=== PATIENT | female | born 1955 | race Caucasian/White ===

== ENCOUNTER 2016-07-10 14:40 | Emergency (ER) ==
--- NOTE | 2016-07-10 15:35 | EKG Report ---
Test Performed on : 07/10/2016 2:52:05 PM Test Reason : dizziness Blood Pressure : / mmHG Vent. Rate : 060 BPM Atrial Rate : 060 BPM P-R Int : 192 ms QRS Dur : 096 ms QT Int : 472 ms P-R-T Axes : 038 022 035 degrees QTc Int : 472 ms Normal sinus rhythm. Normal ECG No previous ECGs available Unconfirmed Result
[2016-07-10] MEDS ORDERED: NS 1,000 ML IV ONE (17:08)
[2016-07-10] MEDS ORDERED: ANTIVERT PO ONE (17:08)
[2016-07-10] MEDS ORDERED: ZOFRAN IV ONE (17:09)
--- NOTE | 2016-07-10 17:14 | PROVIDER DOCUMENTATION ---
HPI-General Adult - History of Present Illness -Gen Adult Nature of Presenting Problems: A 61 y/o F with PMH of HTN DM HL presented with new episode of dizziness associated with nausea describes as room spinning in the past few years ago had similar episode and was presyncopal that time. This episode started 3 hrs [employer] associted with nausea while she was at rest worse with head movement. Denies CP/ SOB/simms/abd pain <Russ Davison - Last Filed: 07/10/16 19:26> <Mili Teresa - Last Filed: 07/10/16 20:42> - General Chief Complaint: Dizziness Stated Complaint: DIZZINESS,NAUSEA,CANT STAND Time Seen by Provider: 07/10/16 16:53 Allergies/Adverse Reactions: Patient Allergies Allergy/AdvReac Type Severity Reaction Status Date / Time No Known Allergies Allergy Verified 07/10/16 17:19 Home Medications: Bisoprolol/Hctz [Ziac 5/6.25 mg] 1 each PO DAILY 04/20/13 Phentermine HCl 37.5 mg PO DAILY 04/20/13 Review of Systems - Adult - REVIEW OF SYSTEMS - ADULT Constitutional: reports: no symptoms reported Eyes: reports: no symptoms reported Ears, Nose, Mouth & Throat: reports: no symptoms reported Cardiovascular: reports: no symptoms reported Respiratory: reports: no symptoms reported Gastrointestinal: reports: no symptoms reported Genitourinary: reports: no symptoms reported Musculoskeletal: reports: no symptoms reported Integumentary: reports: no symptoms reported Neurological: reports: see HPI, dizziness/vertigo Psychiatric: reports: no symptoms reported Endocrine: reports: no symptoms reported Hematologic/Lymphatic: reports: no symptoms reported Allergic/Immunologic: reports: no symptoms reported All Other Systems: Reviewed and Negative <Russ Davison - Last Filed: 07/10/16 19:26> Past History - Adult - PAST MEDICAL HISTORY-ADULT Review of Records: reports: Old Records Reviewed, Nursing Assessment Review, Medications Reviewed, Social history reviewed & non-contributory. Major Childhood Illnesses: reports: denies history Cardiovascular: reports: denies history Respiratory: reports: denies history Gastrointestinal: reports: denies history Obstetrical/Gynecological: reports: denies history Genitourinary: reports: denies history Musculoskeletal: reports: denies history Neurological: reports: denies history Endocrine/Immune: reports: denies history Other Conditions: reports: denies history - FAMILY HISTORY Family History: reviewed, not pertinent <Russ Davison - Last Filed: 07/10/16 19:26> Physical Exam-General - PHYSICAL EXAM-ADULT Initial Vital Signs Reviewed: Yes - CONSTITUTIONAL General Appearance: appears well, alert, mild distress - EYES Eyes: PERRL/EOMI, pink conjunctivae - HEAD, EARS, NOSE, MOUTH & THROAT HENMT: normocephalic/atraumatic, moist mucous membranes, normal ENT inspection - NECK Neck: non-tender, full range of motion, normal inspection - RESPIRATORY Respiratory: chest non-tender, lungs clear, normal breath sounds - CARDIOVASCULAR Cardiovascular: normal peripheral pulses, regular rate, rhythm, no edema - GASTROINTESTINAL (ABDOMEN) Abdominal Exam: normal bowel sounds, non tender, soft - LYMPHATIC Lymphatic: no adenopathy - MUSCULOSKELETAL Back Exam: normal inspection, no CVA tenderness, no vertebral tenderness Extremity: normal range of motion, non-tender, normal gait - SKIN Integumentary: normal color, normal turgor, warm/dry - NEUROLOGIC Neurologic: grossly normal, no motor/sensory deficits, other (bang hallpike positive on the left with horizontal nystagmus) - PSYCHIATRIC Psych/Mental Status: normal mood/affect, normal thought content, normal thought process, oriented x 3 <Russ Davison - Last Filed: 07/10/16 19:26> Progress - PLAN OF CARE/RESULTS Progress/Plan/Lab Results: Laboratory Tests 07/10/16 07/10/16 07/10/16 17:15 17:15 17:15 WBC 13.55 H RBC 4.48 Hgb 12.9 Hct 38.2 MCV 85.3 MCH 28.8 MCHC 33.8 RDW Std Deviation 14.4 Plt Count 332 MPV 10.8 H Immature Gran % (Auto) 0.4 Neut % (Auto) 73.1 Lymph % (Auto) 13.7 L [place] % (Auto) 10.3 H Eos % (Auto) 2.1 Baso % (Auto) 0.4 Immature Gran # (Auto) 0.06 H Neut # (Auto) 9.91 H Lymph # (Auto) 1.85 [place] # (Auto) 1.39 H Eos # (Auto) 0.29 Baso # (Auto) 0.05 PT INR PTT (Actin FS) D-Dimer 0.64 H Sodium 133 L Potassium 3.4 L Chloride 94 L Carbon Dioxide 23 L Anion Gap 16 BUN 18 Creatinine 1.0 H Estimated GFR/1.73 m2 56 BUN/Creatinine Ratio 18 Glucose 106 H Calculated Osmolality 269 Calcium 9.4 Magnesium 2.2 Total Bilirubin 0.57 AST 21 ALT 28 Alkaline Phosphatase 143 H Creatine Kinase 74 Troponin T Zjv-L-Ovamnkogjtg Pept Total Protein 7.9 Albumin 4.2 Globulin 3.7 Albumin/Globulin Ratio 1.1 07/10/16 07/10/16 07/10/16 17:15 17:15 17:15 WBC RBC Hgb Hct MCV MCH MCHC RDW Std Deviation Plt Count MPV Immature Gran % (Auto) Neut % (Auto) Lymph % (Auto) [place] % (Auto) Eos % (Auto) Baso % (Auto) Immature Gran # (Auto) Neut # (Auto) Lymph # (Auto) [place] # (Auto) Eos # (Auto) Baso # (Auto) PT 10.4 INR 0.98 PTT (Actin FS) 28.0 D-Dimer Sodium Potassium Chloride Carbon Dioxide Anion Gap BUN Creatinine Estimated GFR/1.73 m2 BUN/Creatinine Ratio Glucose Calculated Osmolality Calcium Magnesium Total Bilirubin AST ALT Alkaline Phosphatase Creatine Kinase Troponin T < 0.010 Ndi-Y-Iyazduiipwe Pept 60 Total Protein Albumin Globulin Albumin/Globulin Ratio Orders Category Date Time Status Cardiac Monitoring DIRECTED Care 07/10/16 17:06 Active ED: Orthostatic Vital Signs (E as directed Care 07/10/16 17:06 Active Saline Loc NOW Care 07/10/16 17:06 Active ANGIOGRAM/PULMONARY ARTERIES [CT] Stat Exams 07/10/16 18:31 Ordered CHEST-2 VIEWS [RAD] Stat Exams 07/10/16 17:06 Taken CBC WITH ELECTRONIC DIFF [HEME] Stat Lab 07/10/16 17:15 Completed CK PROFILE [SP CHEM] Stat Lab 07/10/16 17:15 Completed COMPREHENSIVE METABOLIC PANEL [CHEM] Stat Lab 07/10/16 17:15 Completed D-DIMER [CHEM] Stat Lab 07/10/16 17:15 Completed MAGNESIUM [CHEM] Stat Lab 07/10/16 17:15 Completed PRO B-NATRIURETIC PEPTIDE Stat Lab 07/10/16 17:15 Completed PROTIME WITH INR [COAG] Stat Lab 07/10/16 17:15 Completed PTT [COAG] Stat Lab 07/10/16 17:15 Completed TROPONIN T Stat Lab 07/10/16 17:15 Completed 0.9% Sodium Chloride Inj [Ns] 1,000 ml Med 07/10/16 17:08 Discontinued IV 999 mls/hr Meclizine [Antivert] Med 07/10/16 17:08 Discontinued 50 mg PO NOW ONE Ondansetron [Zofran] Med 07/10/16 17:09 Discontinued 4 mg IV NOW ONE EKG [EKG] Stat Ther 07/10/16 14:46 Draft Vital Signs Temp Pulse Pulse Pulse Pulse Resp BP 07/10/16 17:53 61 70 63 07/10/16 14:43 98.0 F 58 L 18 136/92 BP BP BP Pulse Ox 07/10/16 17:53 146/90 143/83 133/70 07/10/16 14:43 100 No Known Allergies Allergy (Verified 07/10/16 17:19) Bisoprolol/Hctz [Ziac 5/6.25 mg] 1 each PO DAILY 04/20/13 Phentermine HCl 37.5 mg PO DAILY 04/20/13 Aspirin 81 mg PO DAILY #0 chewtab 04/23/13 Bisoprolol [Zebeta] 5 mg PO DAILY #0 tablet 04/23/13 Lactobacillus Rhamnosus GG [Culturelle] 1 each PO BID #0 capsule 04/23/13 Metronidazole [Flagyl] 500 mg PO TID #0 tablet 04/23/13 Ondansetron HCl [Zofran] 4 mg PO Q4HR PRN #0 tablet 04/23/13 Laboratory 07/10/16 07/10/16 07/10/16 17:15 17:15 17:15 WBC RBC Hgb Hct MCV MCH MCHC RDW Std Deviation Plt Count MPV Immature Gran % (Auto) Neut % (Auto) Lymph % (Auto) [place] % (Auto) Eos % (Auto) Baso % (Auto) Immature Gran # (Auto) Neut # (Auto) Lymph # (Auto) [place] # (Auto) Eos # (Auto) Baso # (Auto) PT 10.4 INR 0.98 PTT (Actin FS) 28.0 D-Dimer Sodium Potassium Chloride Carbon Dioxide Anion Gap BUN Creatinine Estimated GFR/1.73 m2 BUN/Creatinine Ratio Glucose Calculated Osmolality Calcium Magnesium Total Bilirubin AST ALT Alkaline Phosphatase Creatine Kinase Troponin T < 0.010 Qsz-H-Itidortsnvm Pept 60 Total Protein Albumin Globulin Albumin/Globulin Ratio 07/10/16 07/10/16 07/10/16 17:15 17:15 17:15 WBC 13.55 H RBC 4.48 Hgb 12.9 Hct 38.2 MCV 85.3 MCH 28.8 MCHC 33.8 RDW Std Deviation 14.4 Plt Count 332 MPV 10.8 H Immature Gran % (Auto) 0.4 Neut % (Auto) 73.1 Lymph % (Auto) 13.7 L [place] % (Auto) 10.3 H Eos % (Auto) 2.1 Baso % (Auto) 0.4 Immature Gran # (Auto) 0.06 H Neut # (Auto) 9.91 H Lymph # (Auto) 1.85 [place] # (Auto) 1.39 H Eos # (Auto) 0.29 Baso # (Auto) 0.05 PT INR PTT (Actin FS) D-Dimer 0.64 H Sodium 133 L Potassium 3.4 L Chloride 94 L Carbon Dioxide 23 L Anion Gap 16 BUN 18 Creatinine 1.0 H Estimated GFR/1.73 m2 56 BUN/Creatinine Ratio 18 Glucose 106 H Calculated Osmolality 269 Calcium 9.4 Magnesium 2.2 Total Bilirubin 0.57 AST 21 ALT 28 Alkaline Phosphatase 143 H Creatine Kinase 74 Troponin T Euq-C-Ckndgtftgwt Pept Total Protein 7.9 Albumin 4.2 Globulin 3.7 Albumin/Globulin Ratio 1.1 - EKG 1 Time of EKG reading by physician:: 19:26 EKG Interpretation (*Must complete 3 of following elements*): Normal Prior EKG Comparison: no prior EKG - XRAY 2 XRAY Study: Chest Impression: Normal, See EMR Report <Russ Davison - Last Filed: 07/10/16 19:26> - PLAN OF CARE/RESULTS Progress/Plan/Lab Results: Discussed results and plan of care with patient. Patient agrees with plan and verbalizes understanding. Vital Signs Temp Pulse Pulse Pulse Pulse Resp BP 07/10/16 19:39 98 F 62 16 135/83 07/10/16 17:53 61 70 63 07/10/16 14:43 98.0 F 58 L 18 136/92 BP BP BP Pulse Ox 07/10/16 19:39 100 07/10/16 17:53 146/90 143/83 133/70 07/10/16 14:43 100 No Known Allergies Allergy (Verified 07/10/16 17:19) Bisoprolol/Hctz [Ziac 5/6.25 mg] 1 each PO DAILY 04/20/13 Phentermine HCl 37.5 mg PO DAILY 04/20/13 Aspirin 81 mg PO DAILY #0 chewtab 04/23/13 Bisoprolol [Zebeta] 5 mg PO DAILY #0 tablet 04/23/13 Lactobacillus Rhamnosus GG [Culturelle] 1 each PO BID #0 capsule 04/23/13 Metronidazole [Flagyl] 500 mg PO TID #0 tablet 04/23/13 Ondansetron HCl [Zofran] 4 mg PO Q4HR PRN #0 tablet 04/23/13 Laboratory 07/10/16 07/10/16 07/10/16 17:15 17:15 17:15 WBC RBC Hgb Hct MCV MCH MCHC RDW Std Deviation Plt Count MPV Immature Gran % (Auto) Neut % (Auto) Lymph % (Auto) [place] % (Auto) Eos % (Auto) Baso % (Auto) Immature Gran # (Auto) Neut # (Auto) Lymph # (Auto) [place] # (Auto) Eos # (Auto) Baso # (Auto) PT 10.4 INR 0.98 PTT (Actin FS) 28.0 D-Dimer Sodium Potassium Chloride Carbon Dioxide Anion Gap BUN Creatinine Estimated GFR/1.73 m2 BUN/Creatinine Ratio Glucose Calculated Osmolality Calcium Magnesium Total Bilirubin AST ALT Alkaline Phosphatase Creatine Kinase Troponin T < 0.010 Sgl-S-Eipeovyzbti Pept 60 Total Protein Albumin Globulin Albumin/Globulin Ratio 07/10/16 07/10/16 07/10/16 17:15 17:15 17:15 WBC 13.55 H RBC 4.48 Hgb 12.9 Hct 38.2 MCV 85.3 MCH 28.8 MCHC 33.8 RDW Std Deviation 14.4 Plt Count 332 MPV 10.8 H Immature Gran % (Auto) 0.4 Neut % (Auto) 73.1 Lymph % (Auto) 13.7 L [place] % (Auto) 10.3 H Eos % (Auto) 2.1 Baso % (Auto) 0.4 Immature Gran # (Auto) 0.06 H Neut # (Auto) 9.91 H Lymph # (Auto) 1.85 [place] # (Auto) 1.39 H Eos # (Auto) 0.29 Baso # (Auto) 0.05 PT INR PTT (Actin FS) D-Dimer 0.64 H Sodium 133 L Potassium 3.4 L Chloride 94 L Carbon Dioxide 23 L Anion Gap 16 BUN 18 Creatinine 1.0 H Estimated GFR/1.73 m2 56 BUN/Creatinine Ratio 18 Glucose 106 H Calculated Osmolality 269 Calcium 9.4 Magnesium 2.2 Total Bilirubin 0.57 AST 21 ALT 28 Alkaline Phosphatase 143 H Creatine Kinase 74 Troponin T Rlm-U-Mdpcbiauqev Pept Total Protein 7.9 Albumin 4.2 Globulin 3.7 Albumin/Globulin Ratio 1.1 Orders Category Date Time Status Cardiac Monitoring DIRECTED Care 07/10/16 17:06 Active ED: Orthostatic Vital Signs (E as directed Care 07/10/16 17:06 Active Saline Loc NOW Care 07/10/16 17:06 Active ANGIOGRAM/PULMONARY ARTERIES [CT] Stat Exams 07/10/16 18:31 Taken CHEST-2 VIEWS [RAD] Stat Exams 07/10/16 17:06 Taken CBC WITH ELECTRONIC DIFF [HEME] Stat Lab 07/10/16 17:15 Completed CK PROFILE [SP CHEM] Stat Lab 07/10/16 17:15 Completed COMPREHENSIVE METABOLIC PANEL [CHEM] Stat Lab 07/10/16 17:15 Completed D-DIMER [CHEM] Stat Lab 07/10/16 17:15 Completed MAGNESIUM [CHEM] Stat Lab 07/10/16 17:15 Completed PRO B-NATRIURETIC PEPTIDE Stat Lab 07/10/16 17:15 Completed PROTIME WITH INR [COAG] Stat Lab 07/10/16 17:15 Completed PTT [COAG] Stat Lab 07/10/16 17:15 Completed TROPONIN T Stat Lab 07/10/16 17:15 Completed 0.9% Sodium Chloride Inj [Ns] 1,000 ml Med 07/10/16 17:08 Discontinued IV 999 mls/hr Meclizine [Antivert] Med 07/10/16 17:08 Discontinued 50 mg PO NOW ONE Ondansetron [Zofran] Med 07/10/16 17:09 Discontinued 4 mg IV NOW ONE EKG [EKG] Stat Ther 07/10/16 14:46 Draft Laboratory Tests 07/10/16 07/10/16 07/10/16 17:15 17:15 17:15 WBC 13.55 H RBC 4.48 Hgb 12.9 Hct 38.2 MCV 85.3 MCH 28.8 MCHC 33.8 RDW Std Deviation 14.4 Plt Count 332 MPV 10.8 H Immature Gran % (Auto) 0.4 Neut % (Auto) 73.1 Lymph % (Auto) 13.7 L [place] % (Auto) 10.3 H Eos % (Auto) 2.1 Baso % (Auto) 0.4 Immature Gran # (Auto) 0.06 H Neut # (Auto) 9.91 H Lymph # (Auto) 1.85 [place] # (Auto) 1.39 H Eos # (Auto) 0.29 Baso # (Auto) 0.05 PT INR PTT (Actin FS) D-Dimer 0.64 H Sodium 133 L Potassium 3.4 L Chloride 94 L Carbon Dioxide 23 L Anion Gap 16 BUN 18 Creatinine 1.0 H Estimated GFR/1.73 m2 56 BUN/Creatinine Ratio 18 Glucose 106 H Calculated Osmolality 269 Calcium 9.4 Magnesium 2.2 Total Bilirubin 0.57 AST 21 ALT 28 Alkaline Phosphatase 143 H Creatine Kinase 74 Troponin T Gli-T-Gonbtfusity Pept Total Protein 7.9 Albumin 4.2 Globulin 3.7 Albumin/Globulin Ratio 1.1 07/10/16 07/10/16 07/10/16 17:15 17:15 17:15 WBC RBC Hgb Hct MCV MCH MCHC RDW Std Deviation Plt Count MPV Immature Gran % (Auto) Neut % (Auto) Lymph % (Auto) [place] % (Auto) Eos % (Auto) Baso % (Auto) Immature Gran # (Auto) Neut # (Auto) Lymph # (Auto) [place] # (Auto) Eos # (Auto) Baso # (Auto) PT 10.4 INR 0.98 PTT (Actin FS) 28.0 D-Dimer Sodium Potassium Chloride Carbon Dioxide Anion Gap BUN Creatinine Estimated GFR/1.73 m2 BUN/Creatinine Ratio Glucose Calculated Osmolality Calcium Magnesium Total Bilirubin AST ALT Alkaline Phosphatase Creatine Kinase Troponin T < 0.010 Auw-D-Ijjrbwwmmdw Pept 60 Total Protein Albumin Globulin Albumin/Globulin Ratio Dr. Davison reports if CT is negative the patient can be discharged. - CT/MRI 1 CT Study: Thorax (No PE, patchy ground glass opacities bilaterally, suggesting air trapping or edema. Lingular atelectasis. ([place])) CT Results: see note <Mili Teresa - Last Filed: 07/10/16 20:42> Departure <Russ Davison - Last Filed: 07/10/16 19:26> - Departure Time of Disposition Order: 20:40 Certified Medical Emergency: Emergent <Mili Teresa - Last Filed: 07/10/16 20:42> - Departure DIAGNOSIS: Vertigo Disposition: HOME 01 Condition: Stable Additional Instructions: Follow up with primary care physician Take medications as directed Return to ED for any concerns or worsening of symptoms ED Follow Up Instructions: You have been treated by a care provider in the Emergency Department. These instructions are being provided to you so you can have an understanding of how to care for yourself upon discharge. Upon discharge from the Emergency Department, you are responsible for making arrangements for follow-up care by a physician of your choice. Take all prescribed medications as directed. Return to the Emergency Department immediately for any new or worsening symptoms. You may call the Physician Referral phone number at [phone] to obtain a list of Physicians who are taking new patients. Prescriptions: Meclizine HCl [Antivert] 25 mg PO BID #20 tablet Attestation - Physician/ Mid-level Attestation Patient care was provided by Mid-level provider (MANAGER [employer]/PA):: Yes Mid-level provider:: Mili Teresa Mid-level documentation review:: The Mid-level provider documentation, treatment plan and medical decision making was reviewed by the physician who agrees with all treatment and medical decision making by the MLP. The physician spent face to face time with patient:: Yes <Mili Teresa - Last Filed: 07/10/16 20:42> Physician Attestation
[2016-07-10 17:25] LABS: MANUAL DIFF NEEDED? NO
[2016-07-10 17:28] LABS: BASO% 0.4 % (0.0-0.8); EOS# 0.29 X1000 (0.0-0.7); EOS% 2.1 % (0.0-10.0); HEMATOCRIT 38.2 % (37.0-47.0); HEMOGLOBIN 12.9 g/dL (12.0-16.0); IMM GRAN# 0.06 X1000 (0.0-0.04); IMM GRAN% 0.4 % (0.0-0.5); LYMPH# 1.85 X1000 (1.2-3.4); LYMPH% 13.7 % (20.5-51.1); MCH 28.8 PG (27-31); MCHC 33.8 g/dL (33-37); MCV 85.3 FL (81-99); MONO# 1.39 X1000 (0.11-0.59); MONO% 10.3 % (1.7-9.3); MPV 10.8 FL (7.4-10.4); NEUT% 73.1 % (42.2-75.2); PLT 332 X1000 (130-400); RBC 4.48 XMIL (4.2-5.4)
[2016-07-10 17:46] LABS: INR 0.98; PROTIME 10.4 Seconds (9.2-11.7)
[2016-07-10 18:11] LABS: ALBUMIN 4.2 g/dL (3.5-5.0); CALCIUM 9.4 mg/dL (8.8-10.2); MAGNESIUM 2.2 mg/dL (1.5-2.7); POTASSIUM 3.4 mmol/L (3.5-5.1); TOTAL BILIRUBIN 0.57 mg/dL (0.20-1.00); TOTAL PROTEIN 7.9 g/dL (6.3-8.3)
[2016-07-10 21:13] VITALS: BP 133/97
--- NOTE | 2016-07-11 08:12 | Diag Imaging Result Document ---
PROCEDURE NAME: CHEST-2 VIEWS - 07/10/2016 TWO VIEWS OF THE CHEST: FINDINGS: There is cardiomegaly. There are no previous studies. The lungs appear to be clear. IMPRESSION: Mild cardiomegaly.
--- NOTE | 2016-07-11 08:57 | Diag Imaging Result Document ---
PROCEDURE NAME: ANGIOGRAM/PULMONARY ARTERIES - 07/10/2016 CT ANGIOGRAM PULMONARY ARTERIES WITH CONTRAST: Exam performed with intravenous contrast. A dose- reduction protocol was used. Axial and reformatted coronal images are obtained. COMPARISON: No comparison exam. FINDINGS: There are no filling defects identified in the pulmonary arteries. There is no indication of aortic dissection. There is a small calcified granuloma from old granulomatous disease at the posterior right base. There are hazy pulmonary opacities relatively diffusely with some patchiness. There is subsegmental atelectasis at the anterior left lingula. There is no focal dense consolidation, pleural effusion, or pneumothorax identified. There is mild cardiomegaly. There is apparent fatty infiltration of the visualized portion of the liver noted. IMPRESSION: 1. No evidence of pulmonary embolism. 2. Hazy bilateral pulmonary opacities. These may relate to mild pulmonary edema. There is no discrete focal pneumonia identified. The on-call radiologist provided preliminary results at 8:18 p.m. on 07/10/2016.
== END 2016-07-10 21:13 | disposition home or self-care (01) ==
LOC: ED 14:40
DX: R42 Dizziness and giddiness (principal); Z79.899 Other long term (current) drug therapy
CPT/HCPCS: 36415; 71020; 71275; 80053; 82550; 82948; 83735; 83880; 84484; 85025; 85379; 85610; 85730; 93005; J2405; J7030; Q9967